=== PATIENT | female | born 1945 | race Caucasian/White ===

== ENCOUNTER 2016-12-11 02:48 | Emergency (ER) | payer OTHER ==
--- NOTE | ~2016-12-11 | ER ---
PATIENT'S NAME: KHADRA MONSIVAIS V [facility] AGE: 71 Y [address] ROOM: [place] [id number] LOCATION: [facility] ADMIT DATE: 12/11/2016 ER/Outpatient Report DISCHARGE DATE: 12/11/2016 FAMILY PHYSICIAN: Kvng Prado MD ATTENDING PHYSICIAN: Diogo George CHIEF COMPLAINT: Back pain. HISTORY OF PRESENT ILLNESS: The patient states that for the last 2 months, she has been dealing with back pain. Yesterday, she spent a significant amount of time riding in the front seat of a pickup truck. This has caused worsening of her back pain. It is centered in the low back, radiates more down the right side. She denies bowel or bladder changes or difficulty with walking other than as related to the pain in her back. No sensory deficits are reported. Tylenol and ice have been used. PAST MEDICAL HISTORY: Documented on the record and reviewed by me. SOCIAL HISTORY: Documented on the record and reviewed by me. MEDICATIONS: Documented on the record and reviewed by me. ALLERGIES: DOCUMENTED ON THE RECORD AND REVIEWED BY ME. REVIEW OF SYSTEMS: All systems are reviewed and negative except as noted in the HPI. PHYSICAL EXAMINATION: VITAL SIGNS: Blood pressure was not taken, pulse is 86, respiratory rate 16, temperature 97.4, SpO2 is 96% on room air, pain is rated at 11/10. GENERAL: Age-appropriate female, no obvious pain or distress, recumbent on the exam table. NEUROLOGIC: Awake and alert. GCS 15. No focal deficits. No asymmetry. No weakness on exam. HEENT: Normocephalic, atraumatic. Eyes are PERRL. Oropharynx is clear. NECK: Supple. Trachea is midline. CHEST: Heart is regular rate and rhythm with no murmurs. LUNGS: Clear to auscultation bilateral. ABDOMEN: Soft, nontender, and nondistended. No rebound or guarding. PATIENT'S NAME: KHADRA MONSIVAIS [facility] AGE: 71 Y [address] ROOM: [place] [address] LOCATION: [facility] ADMIT DATE: 12/11/2016 ER/Outpatient Report DISCHARGE DATE: 12/11/2016 FAMILY PHYSICIAN: Kvng Prado MD ATTENDING PHYSICIAN: Diogo George BACK: Normal to inspection and palpation. No spinal tenderness. The right paraspinal and gluteal sciatic region is tender to palpation. Nonreproducible point tenderness intermittently elicited. EXTREMITIES: Warm, well-formed, well-perfused skin, clean, dry, and intact. LABORATORY DATA AND X-RAYS: None. IMPRESSION: Musculoskeletal back pain with back spasm. EMERGENCY DEPARTMENT COURSE: The patient was seen and evaluated. Valium was given. She had marked improvement in her symptoms. I gave her a prescription for methocarbamol, not consistent with cauda equina syndrome. No mechanism consistent with fracture. The patient was discharged in good condition. See PCP as needed. Return if worse. MD YOU LANGSTON/jose /[id number] d: 12/11/1622 t: 12/11/16 1934, OUTPATIENT REPORT
== END 2016-12-11 04:07 | disposition disaster alternative care site (69) ==
LOC: GMED 02:48
DX: M62.830 Muscle spasm of back (principal)